=== PATIENT | female | born 1955 | race Hispanic/Latino ===

== ENCOUNTER 2018-10-25 02:35 | Emergency (ER) | payer OTHER ==
[~2018-10-25] VITALS: Ht 162.6 cm; Wt 87.5 kg
[~2018-10-25 02:35] MED LIST: BENADRYL25 M1 PO; MEDROL2 MG PO; TRAMADOL HCL300 MG PO; VASOTEC10 M1 PO
--- OUTSIDE RECORDS SUMMARY | 2018-10-25 02:39 | XMS REPORT ---
Author Author [facility] Address Unknown Phone Unavailable Care Team Providers Care Rubble Placer Name Role Phone Linsey KAISER Unavailable Unavailable Problems This patient has no known problems. Allergies, Adverse Reactions, Alerts This patient has no known allergies or adverse reactions. Medications This patient has no known medications. Results Test Description Test Time Test Comments Text Results Atomic Results Result Comments MRI SPINE LUMBAR WO [place] [address] Patient Name: FERMÍN MILLER MR #: [id number] : 1955 Age/Sex: 61/F Req #: [id number] [facility] Physician: Ordered by: DONNA KAISER MD Report #: [id number] Location: MRI Room/Bed: Procedure: [id number] MRI/MRI SPINE LUMBAR WO Exam Date: 01/07/17 Exam Time: 1450 REPORT STATUS: Signed History: Low back pain Comparison studies: None Technique: Sagittal, coronal and axial T2 , sagittal T1 and IR, axial spin density oblique. Intravenous contrast: None Findings: Number of lumbar vertebral bodies:5 Alignment: Mild right curvature centered at L3-4. 2 mm degenerative anterolisthesis of L4 on L5. Soft tissues: No T2 hyperintense inflammatory changes. Paraspinal muscles: Fatty infiltrated from L5 through S1. Lower thoracic cord:Normal in signal and morphology. The tip of the conus is at T12-L1. Cauda equina: No masses. No arachnoiditis. Vertebrae: Normal in height and signal intensity. No compression fractures, infection or neoplasm. Degenerative changes: L1-L2: No abnormalities. L2-L3: No abnormalities. L3-L4: Mildly degenerated disc, worse on the left due to the curvature. No Modic type I changes along the endplates. Mild spinal canal stenosis and mild left foraminal stenosis is due to an asymmetric disc bulge. No disc herniation L4-L5: Mildly degenerated disc, worse on the right, due to the curvature is associated with a central annular fissure. Moderate spinal canal stenosis is due 2 mm anterolisthesis of L4 on L5, a disc bulge and bilateral facet arthrosis without synovitis. No significant foraminal stenosis. No disc herniation. L5- S1: Mildly degenerated disc with a left central annular fissure. Patent spinal canal and foramina. No disc herniation. IMPRESSION: 1. Mild curvature towards the left centered at L3-4. 2. Mild degenerative changes on the left at L3-4 and on the right at L4-5 due to the curvature. 3. Degenerative spinal canal stenosis is mild at L3-4 but moderate at L4-5. 4. No significant foraminal stenosis. 5. No disc herniations. Signed by: Dr. Jaspal Hubbard M.D. on 01/07/2017 6:27 PM Dictated By: JASPAL HUBBARD MD, MD 26 Transcribed By: TAYLOR on 01/07/171826 COPY TO: DONNA KAISER MD
--- OUTSIDE RECORDS SUMMARY | 2018-10-25 02:39 | XMS REPORT | Summary of Care ---
Author Author [facility] Organization [facility] Address Unknown Phone Unavailable Encounter HQ Encntr_alias(FIN) [id number] Date(s): 04/30/15 - 04/30/15 [facility] [address] [place] [address]- Discharge Disposition: Home Attending Physician: Kodak Coleman MD Referring Physician: Kodak Coleman MD Vital Signs No data available for this section Problem List No data available for this section Allergies, Adverse Reactions, Alerts No data available for this section Medications No data available for this section Results No data available for this section Immunizations No data available for this section Procedures No data available for this section Social History No data available for this section Assessment and Plan No data available for this section
--- OUTSIDE RECORDS SUMMARY | 2018-10-25 02:39 | XMS REPORT | Summary of Care ---
Author Author [facility] [place] Organization [facility] [place] Address Unknown Phone Unavailable Encounter HQ Saintr_willian(FIN) [id number] Date(s): 02/13/18 - 02/13/18 [facility] [place] [address] [place] [phone] Encounter Diagnosis Other tear of lateral meniscus, current injury, right knee, subsequent encounter (Final) - 02/16/18 Chondromalacia, right knee (Final) - Synovitis and tenosynovitis, unspecified (Final) - Effusion, right knee (Final) - Discharge Disposition: Home or Self Care Attending Physician: Gumaro Oviedo MD Referring Physician: Gumaro Oviedo MD Vital Signs No data available for [...]
--- OUTSIDE RECORDS SUMMARY | 2018-10-25 02:39 | XMS REPORT | Continuity of Care Document ---
Author Author [facility] Address Unknown Phone Unavailable Problems Problem Status Onset Date Classification Date Reported Comments Source Other tear of lateral meniscus, current injury, right knee, subsequent encounter 02/17/2018 09/02/2018 [facility] ROUTINE Active 04/17/2015 [facility] SCREENING Active 05/30/2012 [facility] Chondromalacia, right knee 09/02/2018 [facility] Synovitis and tenosynovitis, unspecified 09/02/2018 [facility] Effusion, right knee 09/02/2018 [facility] Medications Medication Details Route Status Patient Instructions Ordering Provider Order Date Source Allergies, Adverse Reactions, Alerts Substance Category Reaction Severity Reaction type Status Date Reported Comments Source Immunizations Immunization Date Given Site Status Last Updated Comments Source Results Order Name Results Value Reference Range Date Interpretation Comments Source Knee wo contrast MRI Knee wo contrast MRI EXAMINATION: MRI of the right knee without contrast. HISTORY: S83.281D Other tear of lateral meniscus, current injury, right knee, subsequent encounter - S83.281D Other tear of lateral meniscus, current injury, right knee, subsequent encounter; AGE: 62 years GENDER: Female COMPARISON: There are no radiographs available for review. TECHNIQUE: Multiplanar, multisequence magnetic resonance imaging of the right knee is performed with an extremity coil without contrast. FINDINGS: Menisci: Medial: The anterior horn, body, and posterior horn are intact. Lateral: The anterior horn, body, and posterior horn are intact. Ligaments: The anterior cruciate ligament and posterior cruciate ligament are intact. The medial collateral ligament and lateral collateral ligament complex are intact. Extensor mechanism: The extensor mechanism is intact. Muscles: There is normal signal intensity and muscle bulk of the musculature at the knee. Cartilage: Moderate reactive marrow change in the patellofemoral compartment, greatest in the lateral patellofemoral compartment. Moderate reactive marrow edema in the weightbearing medial femoral condyle and medial tibial plateau. The patellofemoral articular cartilage demonstrates grade 3 chondromalacia, greatest laterally. The medial tibiofemoral articular cartilage demonstrates a 6 x 11 mm full-thickness chondral defect in the posterior weightbearing medial femoral condyle. Full-thickness 5 x 6 mm chondral defect in the central weightbearing. There is background grade 2/3 chondromalacia in the tibiofemoral compartment. The lateral tibiofemoral articular cartilage is intact.. Bone: There are no acute fractures. There are no suspicious bone marrow replacing lesions. Soft tissues: There is a large knee joint effusion. Moderate synovitis. Small Ku's cyst. IMPRESSION: 1. Moderate to severe chondromalacia in the medial tibiofemoral compartment as described in detail above. There is underlying moderate reactive marrow edema in the medial femoral condyle and medial tibial plateau. 2. Grade III chondromalacia in the lateral patellofemoral compartment with underlying reactive marrow change. 3. Large knee joint effusion with moderate synovitis. Small Ku's cyst. 02/13/2018 - - Read by: Oziel Bradley MD Dictated Date/time: 02/13/18 14:32 Electronically Signed by: Oziel Bradley MD 02/13/18 14:44 FINAL REPORT [facility] Digital Mammo Screening Angie MA Digital Mammo Screening Angie MA - DIGITAL MAMMO SCREENING ANGIE MA BILATERAL DIGITAL SCREENING MAMMOGRAM WITH CAD: 04/30/2015 CLINICAL: Routine. Current study was evaluated with a Computer Aided Detection (CAD) system. Comparison is made to exams dated: 06/06/2012 mammogram - [facility], 07/31/2009 mammogram, 06/11/2008 mammogram and 07/12/2007 mammogram. There are scattered fibroglandular densities in both breasts. There are benign vascular calcifications in both breasts. There also is a benign calcification in the right breast. No significant masses, calcifications, or other findings are seen in either breast. There has been no significant interval change. IMPRESSION: BENIGN There is no mammographic evidence of malignancy. A 1 year screening mammogram is recommended. Rafaela hartman/rene:04/30/2015 13:22:22 Homeowner Association Manager: Maria Luisa Murray, [facility] This exam was dictated and interpreted by [id number] for [facility]. letter sent: Normal exam Mammogram BI-RADS: 2 Benign 04/30/2015 - - Read by: Rafaela Agustin MD Dictated Date/time: 04/30/15 13:22 Electronically Signed by: Rafaela Agustin MD 04/30/15 13:22 FINAL REPORT [facility] Vital Signs Vital Sign Value Date Comments Source Encounters Location Location Details Encounter Type Encounter Number Reason For Visit Attending Provider ADM Date DC Date Status Source [facility] Outpatient [id number] SCREENING [place] GAETANO 06/06/2012 Active [facility] [id number] [place] [facility] 04/30/2015 05/01/2015 [facility] [place] [facility] [id number] Gumaro Oviedo 02/13/2018 02/14/2018 [facility] Procedures Procedure Code Date Perfomer Comments Source
[2018-10-25] MEDS ORDERED: BUPROPION HCL150 M2 PO (02:54)
[2018-10-25] MEDS ORDERED: AMLODIPINE BESYL5 MG PO (02:54)
[2018-10-25] MEDS ORDERED: CELEBREX200 MG PO (02:54)
[2018-10-25] MEDS ORDERED: CHANTIX1 MG PO (02:54)
[2018-10-25] MEDS ORDERED: XARELTO15 MG PO (02:54)
[2018-10-25 03:00] LABS: BASOPHILS % 0.2 % (0.0-1.0); EOSINOPHILS # (AUTO) 0.2 (0.0-0.4); EOSINOPHILS % 1.7 % (0.0-6.0); HEMATOCRIT 41.6 % (34.2-44.1); HEMOGLOBIN 14.4 g/dL (12.0-16.0); LYMPHOCYTES # (AUTO) 2.1 (1.0-3.2); LYMPHOCYTES % 21.2 % (18.0-39.1); MEAN CORPUSCULAR HEMOGLOBIN 31.2 pg (28-32); MEAN CORPUSCULAR HGB CONC 34.6 g/dL (31-35); MEAN CORPUSCULAR VOLUME 90.2 fL (81-99); MONOCYTES # (AUTO) 0.7 (0.2-0.8); MONOCYTES % 6.6 % (4.4-11.3); NEUTROPHILS # (AUTO) 6.9 (2.1-6.9); NEUTROPHILS % 69.8 % (38.7-80.0); PLATELET COUNT 225 x10e3/uL (140-360); RED BLOOD COUNT 4.61 x10e6/uL (3.6-5.1); RED CELL DISTRIBUTION WIDTH 13.4 % (11.7-14.4)
[2018-10-25 03:07] LABS: PROTHROMBIN TIME 13.7 seconds (11.9-14.5)
[2018-10-25 03:08] LABS: PARTIAL THROMBOPLASTIN TIME 30.4 seconds (23.8-35.5)
[2018-10-25 03:17] LABS: ALANINE AMINOTRANSFERASE 23 IU/L (0-55); ALBUMIN 3.5 g/dL (3.5-5.0); ALBUMIN/GLOBULIN RATIO 1.2 (0.8-2.0); ALKALINE PHOSPHATASE 119 IU/L (40-150); ANION GAP 14.9 mmol/L (8-16); BLOOD UREA NITROGEN 12 mg/dL (7-26); BUN/CREATININE RATIO 17 (6-25); CALCIUM 9.5 mg/dL (8.4-10.2); CARBON DIOXIDE 21 mmol/L (22-29); CHLORIDE 108 mmol/L (98-107); CREATINE KINASE 43 IU/L (29-168); CREATININE, SERUM 0.71 mg/dL (0.57-1.11); EST GLOMERULAR FILTRATION RATE > 60 ML/MIN (60-); GLUCOSE 129 mg/dL (74-118); POTASSIUM 3.9 mmol/L (3.5-5.1); SODIUM 140 mmol/L (136-145)
[2018-10-25] MEDS ORDERED: IOPAMIDOL 370 MG/ML 200 ML INFUS..BTL INJ ONE (03:27)
[2018-10-25] MEDS ORDERED: SODIUM CHLORIDE 0.9% 50ML 50 ML ONE (03:27)
--- NOTE | 2018-10-25 04:05 | Diagnostic Imaging Report ---
EXAMINATION: CT scan of the chest with contrast. TECHNIQUE: Helical CT images of the chest were performed from the lung apices to the level of the adrenal glands after the intravenous administration of 100 cc of Omnipaque 300. Coronal and sagittal reformatted images were obtained.Dose modulation, iterative reconstruction, and/or weight based adjustment of the mA/kV was utilized to reduce the radiation dose to as low as reasonably achievable. COMPARISON: None. CLINICAL HISTORY:Shortness of breath DISCUSSION: LINES/TUBES: None. LUNGS AND AIRWAYS: The lungs are clear. No pulmonary nodules, masses or consolidation. The airways are normal, without endobronchial lesions. No pulmonary embolism. Areas of mixing artifact. PLEURA: No pneumothorax or pleural effusions. HEART AND MEDIASTINUM: The thyroid gland is normal. The heart and pericardium are within normal limits. LYMPH NODES: No mediastinal, hilar or axillary lymphadenopathy. ABDOMEN: Cholelithiasis. BONES AND SOFT TISSUES: No acute bony abnormalities. IMPRESSION: No pulmonary blood. Signed by: Dr. Sean Bhatt M.D. on 10/25/2018 4:02 AM
[2018-10-25 04:25] LABS: BILIRUBIN,URINE NEGATIVE (NEGATIVE); CLARITY,URINE CLEAR (CLEAR); COLOR,URINE YELLOW (YELLOW); KETONES,URINE NEGATIVE (NEGATIVE); LEUKOCYTE ESTERASE ,URINE NEGATIVE (NEGATIVE); NITRITE,URINE NEGATIVE (NEGATIVE); PROTEIN,URINE DIPSTICK NEGATIVE (NEGATIVE); URINE UROBILINOGEN 0.2 mg/dL (0.2 - 1)
[2018-10-25 04:37] LABS: BACTERIA,URINE RARE /HPF; EPITHELIAL CELLS,URINE FEW /LPF; RBC,URINE 0-5 /HPF (0-5); WBC,URINE (MAN) 0-5 /HPF (0-5)
[2018-10-25 04:45] VITALS: BP 130/65
== END 2018-10-25 05:13 | disposition home or self-care (01) ==
LOC: ER 02:35
DX: R00.2 Palpitations (principal); Z86.718 Personal history of other venous thrombosis and embolism; F17.210 Nicotine dependence, cigarettes, uncomplicated
CPT/HCPCS: 36415; 71260; 80053; 81001; 82550; 82553; 83880; 84484; 85025; 85610; 85730; 93005; 99284; Q9967